=== PATIENT | female | born 1975 | race Two or more races ===

== ENCOUNTER 2019-10-11 19:03 | Emergency (ER) | payer SELFPAY ==
[~2019-10-11] VITALS: Ht 170.2 cm; Wt 65.0 kg
[2019-10-11 21:25] VITALS: BP 122/68
== END 2019-10-11 21:29 | disposition home or self-care (01) ==
LOC: ER 19:03
DX: J11.1 Influenza due to unidentified influenza virus with other respiratory manifestations (principal)
CPT/HCPCS: 99282